=== PATIENT | female | born 1965 | race Two or more races ===

== ENCOUNTER 2020-08-04 23:44 | Emergency (ER) | payer OTHER ==
[~2020-08-04] VITALS: Ht 170.2 cm; Wt 63.5 kg
[2020-08-05] MEDS ORDERED: PEPCID AC20 MG PO (04:57)
[2020-08-05] MEDS ORDERED: CARAFATE1 GM PO (04:57)
[2020-08-05] MEDS ORDERED: PROTONIX20 MG PO (04:57)
[2020-09-20] MEDS ORDERED: ACETAMINOPHEN500 M1 (10:45)
== END 2020-08-05 05:24 | disposition home or self-care (01) ==
LOC: ER 23:44
DX: K29.60 Other gastritis without bleeding (principal); R10.32 Left lower quadrant pain; Z20.822 Contact with and (suspected) exposure to COVID-19